=== PATIENT | female | born 1955 | race Caucasian/White ===

== ENCOUNTER → 2017-09-20 | Outpatient (CLI) | payer OTHER ==
[~2017-09-20] MED LIST: ACE500 PO; AMOX-556 PO; CHOL10005 PO; DILT120C28 PO; FAMO-122 PO; FOLI-68 PO; GOLYTE PO; HYDEL; HYDR12.561 PO; IBUP-1618 PO; IBUP200C71 PO; LORA-1456 PO; LOSA100T67 PO; MULT1TAB64 PO; NITR-105 PO; OMEG-11 PO; OMEP-125 PO; OMEP20CA68 PO; OMEP40CA45 PO; PRED20TA6 PO; ZOL5 PO; ZOLP-358 PO; ZOLP-360 PO; [UNRECOGNIZED DRUG - OTHER] PO
--- NOTE | 2017-09-20 11:33 | RADIOLOGY IMAGING REPORT ---
FACILITY: [facility] PATIENT NAME: ANDREIA TEJEDA : [id number] MR: [id number] V: [id number] EXAM DATE: [id number] ORDERING PHYSICIAN: GATO FISHER TECHNOLOGIST: Vannessa Monsivais PROCEDURE:BILATERAL DIGITAL SCREENING MAMMOGRAM WITH CAD ASSISTED INTERPRETATION & 3D TOMOSYNTHESIS COMPARISON:Prior mammograms 07/08/15 back to 03/31/11. INDICATIONS:SCREENING FINDINGS: The breast parenchyma is predominately fatty replaced. There are no dominant masses or recent microcalcifications. DIAGNOSTIC CATEGORY 1--NEGATIVE. RECOMMENDATIONS: ROUTINE MAMMOGRAM AND CLINICAL EVALUATION. IMPRESSION: BIRADS 1: Negative. Routine mammographic screening. Dictated by: Boy Reece M.D. on 09/20/2017 at 9:13 Transcribed by: MARNI on 09/20/2017 at 9:16 Approved by: Boy Reece M.D. on 09/20/2017 at 11:33 [facility]
== END ==
LOC: MAMO 09-09 04:11
PROVIDERS: ATTEND Internal Medicine
DX: Z12.31 Encounter for screening mammogram for malignant neoplasm of breast (principal)
CPT/HCPCS: 77063; 77067

== ENCOUNTER → 2018-03-13 | Outpatient (CLI) | payer OTHER ==
[~2018-03-13] MED LIST changes: +IBUP-136 PO; -IBUP200C71 PO; -LOSA100T67 PO; +LOSA100T75 PO
--- NOTE | 2018-03-15 19:58 | RT HOLTER TEST ---
FACILITY: [facility] [place] PATIENT NAME: ANDREIA TEJEDA : [id number] MR: [id number] V: [id number] EXAM DATE: ORDERING PHYSICIAN: PAMELA GUEVARA TECHNOLOGIST: ARON Hook-up date: 2018-03-13 10:11:00 Duration: 47:50:00 Test Indications: PALPITATIONS Medications: [id number] QRS complexes 690 Ventricular ectopics which represent <1 % of total QRS comp. 26 Supraventricular ectopics which represent <1 % of total QRS comp. * Paced QRS complexes which represent % of total QRS comp. VENTRICULAR ECTOPY 688 Isolated 7 Bigeminal Cycles 1 Couplets 0 Runs 0 Beats in Runs * Beats LONGEST at * BPM at :: -- * Beats FASTEST at * BPM at :: -- SUPRAVENTRICULAR ECTOPY 16 Isolated 1 Couplets 1 Runs 8 Beats in Runs 8 Beats LONGEST at 163 BPM at 10:03:00 2018-03-14 8 Beats FASTEST at 163 BPM at 10:03:00 2018-03-14 HEART RATES 48 MIN at 04:10:43 2018-03-14 77 AVG 157 MAX at 10:03:02 2018-03-14 LONGEST RR 1.432 secs at 03:17:19 2018-03-14 S-T LEVELS Channel 1 -12.800 mm MIN at 10:11:00 2018-03-13 -12.800 mm MAX at 10:11:00 2018-03-13 Channel 2 -12.800 mm MIN at 10:11:00 2018-03-13 -12.800 mm MAX at 10:11:00 2018-03-13 Channel 3 -12.800 mm MIN at 10:11:00 2018-03-13 -12.800 mm MAX at 10:11:00 2018-03-13 Test dominated by normal sinus rhythym. Infrequent supraventricular ectopy generally isolated. Occasional PVC. Patient diary notations correlate with normal sinus rhythym. Negative halter study. Confirmed by Santhosh Jenkins ([id number]) on 03/15/2018 7:58:16 PM Referred By: Overread By: Santhosh Delgado
== END ==
LOC: RESP 07:17
PROVIDERS: ATTEND Internal Medicine
DX: R00.2 Palpitations (principal)
CPT/HCPCS: 93225; 93226

== ENCOUNTER → 2018-09-28 | Outpatient (CLI) | payer OTHER ==
[~2018-09-28] MED LIST changes: +AZIT-1 PO; -OMEP-125 PO; +OMEP-126 PO; +SCOP1PAT2 TD
== END ==
LOC: LAB 15:10
PROVIDERS: ATTEND Internal Medicine
DX: E05.90 Thyrotoxicosis, unspecified without thyrotoxic crisis or storm (principal); E78.00 Pure hypercholesterolemia, unspecified; I10 Essential (primary) hypertension
CPT/HCPCS: 36415; 83519; 84432; 84439; 84443; 84481; 86376; 86800